=== PATIENT | female | born 1955 | race Hispanic/Latino ===

== ENCOUNTER 2018-07-23 08:20 | Day surgery (SDC) | payer BC ==
[2018-07-23] MEDS ORDERED: Ringers Lactate 1,000 ML IV ONE (09:29)
[2018-07-23] MEDS ORDERED: HEPARIN 5000 UNIT/ML 1 ML VIAL ONE ×2 (09:56)
[2018-07-23] MEDS ORDERED: MIDAZOLAM HCL 2 MG/2 ML INJ ONE ×2 (10:01→10:13)
[2018-07-23] MEDS ORDERED: FENTANYL CITR 100 MCG/2 ML ONE (10:13)
[2018-07-23] MEDS ORDERED: LIDOCAINE 1% MPF 5 ML VIAL ONE (10:13)
[2018-07-23] MEDS ORDERED: PROPOFOL 200 MG/20 ML VIAL IV ONE (10:13)
[2018-07-23] MEDS ORDERED: NA CHLORIDE 0.9% 1,000 ML ONE (10:14)
[2018-07-23] MEDS ORDERED: LIDOCAINE 1% W/EPI 1:100,000 MDV 50 ML VIAL ONE (10:14)
[2018-07-23] MEDS ORDERED: KETOROLAC 30 MG/ML INJ ONE (10:55)
[2018-07-23] MEDS ORDERED: IBUPROFEN 200 MG TAB PO ONE (11:21)
[2018-07-23] MEDS ORDERED: IBUPROFEN 400 MG TAB ONE (11:22)
--- NOTE | 2018-07-23 21:53 | OP ---
Date of Procedure: 07/23/2018 Surgeon: Jael Sanders MD Manager Chemical: None. Preoperative Diagnoses: Thickened endometrium, uterine prolapse, stage II. Postoperative Diagnoses: Thickened endometrium, uterine prolapse, stage II. Procedures Performed: Hysteroscopy, D and C. Specimens: Endometrial curettings. Anesthesia: MAC plus paracervical block. Complications: No complications. Drains: No drains. Condition: Stable. Findings: Uterus was prolapsed, point C at 0, stage II. Endometrium, lower aspect of the posterior wall thickened and curetted and adequate specimen obtained. Description Of Procedure: After informed consent was verified, the patient was taken back to the OR and placed in a supine fashion on the operating table. After MAC was given, she was placed in a dors al lithotomy position. Pelvic exam was performed, uterine prolapse as noted above. Injection with 1 % lidocaine mixed with 1:100,000 epinephrine 10 cc at 12 o'clock position on the cervix and a paracer vical block at 4 and 8 o'clock positions at the cervicovaginal junction, 5 cc each. Allis clamps x2 were placed and prep x3 with Betadine was done. Diagnostic SlimLine hysteroscope was used with nico l saline and 30-degree lens for hysteroscopy. Direct hysteroscopy was performed through the cervical canal into the uterine cavity. Cavity was empty. The posterior wall was thickened in the lower asp ect as noted above. The scope was removed and curettings were performed. There was adequate samplin g directed mostly to the posterior lower wall. Rest of the sampling was scant. All the specimens we re sent for permanent pathology. Instruments were removed. Instrument, needle, and sponge counts we re done and were correct at the end of the case. The patient was given 50 mg of Toradol, recovered f rom anesthesia and taken to PACU in stable condition. She will follow up with me in 1 week. EMMANUEL/AUTUMN Voice ID: [id number] Report ID: [id number]
== END 2018-07-23 11:45 | disposition home or self-care (01) ==
LOC: OR 08:20
PROVIDERS: ATTEND Obstetrics & Gynecology
PROC: 0UJD8ZZ Inspection of Uterus and Cervix, Via Natural or Artificial Opening Endoscopic (ICD-10-PCS; 2018-07-23)
PROC: 0UDB7ZX Extraction of Endometrium, Via Natural or Artificial Opening, Diagnostic (ICD-10-PCS; principal; 2018-07-23 09:30)
DX: N84.0 Polyp of corpus uteri (principal); N85.8 Other specified noninflammatory disorders of uterus; N81.2 Incomplete uterovaginal prolapse; N94.12 Deep dyspareunia; I10 Essential (primary) hypertension; Z88.6 Allergy status to analgesic agent; Z86.718 Personal history of other venous thrombosis and embolism; Z80.1 Family history of malignant neoplasm of trachea, bronchus and lung; Z82.49 Family history of ischemic heart disease and other diseases of the circulatory system; Z83.3 Family history of diabetes mellitus
CPT/HCPCS: 88305; J1644; J2250; J2704; J3010; J7030

== ENCOUNTER → 2023-04-16 | Day surgery (SDC) | payer OTHER | LOC: DS 08:48 | PROVIDERS: ATTEND Family Medicine | DX: N63.20 Unspecified lump in the left breast, unspecified quadrant (principal); R92.8 Other abnormal and inconclusive findings on diagnostic imaging of breast; Z53.8 Procedure and treatment not carried out for other reasons | CPT/HCPCS: 76642 ==

== ENCOUNTER 2023-12-21 17:07 | Emergency (ER) | payer OTHER ==
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
[2023-12-21] MEDS ORDERED: IBUPROFEN 200 MG TAB PO ONE (17:27)
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
[2023-12-21 18:03] VITALS: BP 173/75; TEMP 97.7; O2SAT 100
== END 2023-12-21 17:40 | disposition home or self-care (01) ==
LOC: ER 17:07
DX: M54.50 Low back pain, unspecified (principal); V59.50XA Passenger in pick-up truck or van injured in collision with unspecified motor vehicles in traffic accident, initial encounter; Z88.5 Allergy status to narcotic agent